=== PATIENT | male | born 1950 | race Caucasian/White ===

== ENCOUNTER 2022-01-14 13:10 | Outpatient (CLI) | payer BC, MEDICARE, SELFPAY ==
[2022-01-14 17:53] LABS: Chloride* 104 mmol/L (96-114); Sodium* 140 mmol/L (135-149)
[2022-01-14 17:55] LABS: Cholesterol* 162 mg/dL (90-199); Creatinine* 0.9 mg/dL (0.5-1.5); Estimated Glomerular Filt Rate 92 ml/min
[2022-01-14 17:56] LABS: Blood Urea Nitrogen* 17 mg/dL (7-30); Calcium* 9.2 mg/dL (8.4-10.6); Carbon Dioxide* 28 mmol/L (20-32); Glucose* 79 mg/dL (60-115); HDL Cholesterol* 46 mg/dL (>=40); LDL Cholesterol Calculated 94 mg/dL (<100); Triglycerides* 109 mg/dL (40-149)
[2022-01-14 18:27] LABS: PSA Screen* 0.45 ng/mL (0.10-4.00)
== END 2022-01-14 13:11 | disposition home or self-care (01) ==
PROVIDERS: PCP Family Medicine; Visit Provider Family Medicine
DX: I10 Essential (primary) hypertension (principal); I25.10 Atherosclerotic heart disease of native coronary artery without angina pectoris; R07.89 Other chest pain; Z12.5 Encounter for screening for malignant neoplasm of prostate
CPT/HCPCS: 80048; 80061; 84153

== ENCOUNTER 2022-01-29 09:08 | Outpatient (CLI) | payer BC, MEDICARE, SELFPAY ==
--- NOTE | 2022-01-29 09:00 | CRLHL7_ITS ---
For Patients: As a result of the Century Cures Act, medical imaging exams and procedure reports are released immediately into your electronic medical record. You may view this report before your referring provider. If you have questions, please contact your health care provider. [facility] MYOCARDIAL PERFUSION SCAN CLINICAL HISTORY: 71-year-old male. ASHD. Previous coronary stenting x 3. Chest pain. Former smoker. Hypertension. 240 pounds. TECHNIQUE: (Resting SPECT and Stress Gated SPECT with wall motion and ejection fraction) Stress: Treadmill (5 minutes 6 seconds) Maximum heart rate: 139 bpm Maximum systolic blood pressure: 184 mmHg systolic Rate pressure product: 25,576 Dose (Stress/Rest): 34.4 mCi/9.76 mCi Tc-99m Sestamibi (IV) Comparison: None FINDINGS: There is good uptake of activity by the left ventricle. No left ventricular enlargement is noted. There is soft tissue attenuation. No other significant fixed or reversible defects are identified. The gated images demonstrate a normal left ventricular ejection fraction of approximately 65 percent. No regional wall motion abnormalities are identified. IMPRESSION: 1. There is no evidence of significant myocardial ischemia or infarction. 2. Normal left ventricular ejection fraction of approximately 65 percent. This study was jointly reviewed by radiology and cardiology. DALE SHER M.D. [email or web address] Transcribed: 2:47 pm ARLEN ALMAGUER M.D. CO-READER Department of Cardiology DW/Dictated by: Dale Sher MD @ 01/29/2022 1:47:00 PM DW/Dictated by: Dale Sher MD @ 01/29/2022 1:47:00 PM (Electronically Signed)
[2022-01-29 11:06] VITALS: BP 160/84; PULSE 86; RESP 18
--- NOTE | 2022-01-29 15:50 | PM.ST ---
Stress Test Note Date Time Seen by Provider: 10:40 Date Seen: 01/29/22 Date of test: 01/29/22 Providers Referring provider: Edwar Frazier Primary care provider: Edwar Frazier Stress test physician: Kelli Dimas Stress Test Note Stress test ordered: Stress Myoview Indication for test: Chest pain, history CAD. Stress test medicine: None Results discussion: Resting EKG: Sinus rhythm, 69 beats per minute, some baseline artifact. Resting blood pressure: 144/84 Stress test: Patient exercised on the treadmill following standard Hardy protocol. He was able to exercise to 5 minutes 6 seconds. Occasional PVCs and 1 couplet of ventricular ectopy noted, patient asymptomatic. Otherwise no arrhythmia. He achieved 7 Mets with this exercise level. He had a maximum heart rate of 139 beats per minute which was 108% of a calculated target heart rate of 128. He had no recurrent chest pain during exercise. Test was terminated due to becoming short of breath, reaching a maximal exercise tolerance and obtaining his needed heart rate. He recovered nicely. Nuclear medicine images to couple this for a full formal diagnostic. Impression: Subjectively negative, objectively negative EKG portion of this stress test. Follow up suggested: He will wait report from his primary care provider Dr. Frazier. We have discussed exercise as tolerated. He does walk daily and it is not bothering him at this point. If he has recurrent chest pain he is to seek re-evaluation in the interim.
== END 2022-01-29 09:09 | disposition home or self-care (01) ==
LOC: STRESS 09:08
PROVIDERS: PCP Family Medicine; Visit Provider Family Medicine
DX: I25.10 Atherosclerotic heart disease of native coronary artery without angina pectoris (principal); R07.89 Other chest pain; I10 Essential (primary) hypertension
CPT/HCPCS: 78452; 93016; 93017; A9500

== ENCOUNTER 2023-01-21 07:49 | Outpatient (CLI) | payer BC, MEDICARE, SELFPAY | END 2023-01-21 07:50 | disposition home or self-care (01) | PROVIDERS: PCP Family Medicine; Visit Provider Family Medicine | DX: I10 Essential (primary) hypertension (principal); I25.10 Atherosclerotic heart disease of native coronary artery without angina pectoris | CPT/HCPCS: 80048; 80061 ==

== ENCOUNTER 2023-03-04 10:46 | Outpatient (CLI) | payer BC, MEDICARE, SELFPAY | END 2023-03-04 10:47 | disposition home or self-care (01) | LOC: LONREF 10:49 | PROVIDERS: PCP Family Medicine; Visit Provider Family Medicine | DX: Z01.818 Encounter for other preprocedural examination (principal) | CPT/HCPCS: 80048 ==

== ENCOUNTER 2023-03-12 10:51 | Day surgery (SDC) | payer BC, MEDICARE, SELFPAY ==
[2023-03-12] VITALS (30 sets, daily range): BP systolic 84–159; BP diastolic 56–95; PULSE 53–97; RESP 15–20; TEMP 36–37.2; O2SAT 91–99; BMI 38.3
[2023-03-12] MEDS: ACETAMINOPHEN 500 MG TABLET 1000 MG PO ×3 (11:41→23:46)
[2023-03-12] MEDS: OXYCODONE (CR) 10 MG TAB.ER.12H PO (11:41)
[2023-03-12] MEDS: fentaNYL 100 MCG/2 ML inj IVP (12:01)
[2023-03-12] MEDS: SODIUM CHLORIDE 0.9 % (FLUSH) 10 ML SYRINGE IVF (12:02)
[2023-03-12] MEDS: LACTATED RINGERS 1000 ML 1,000 ML 100 ML IV ×2 (12:03→15:00)
--- NOTE | 2023-03-12 12:56 | CRLHL7_ITS ---
For Patients: As a result of the Cures Act, medical imaging exams and procedure reports are released immediately into your electronic medical record. You may view this report before your referring provider. If you have questions, please contact your health care provider. INDICATION: Post operative knee arthroplasty TECHNIQUE: Knee radiograph 2 views right COMPARISON: None FINDINGS: Bone: No acute fractures or aggressive bone lesions are identified. Joint: The patient is status post a total knee arthroplasty with patellar resurfacing. No significant knee effusion is seen. Soft tissue: Anterior skin, subcutaneous gas and joint gas are present from recent surgery. No radiopaque foreign bodies are seen. Moderate vascular calcifications are noted. IMPRESSION: 1. There is an unremarkable postoperative appearance of the knee arthroplasty. Dictated by: Naif Caputo MD @ 03/14/2023 08:19:33 (Electronically Signed)
[2023-03-12] MEDS: MIDAZOLAM HCL 1 MG/ML inj IVP (13:52)
--- NOTE | 2023-03-12 14:11 | W.PM.NB ---
Nerve Block Nerve Block Time Seen by Provider: 14:00 Date Seen: 03/12/23 Type of block requested by surgeon for post-operative analgesia: adductor canal Side: right Time out performed: Yes Verification of patient name: Yes Verification of date of : Yes Site marking: site marked Name of person performing procedure: Sergio Lyn Continuous monitoring Was continuous monitoring of O2 sat, B/P, email campaign specialist, recorded every 15 minutes?: Yes Procedure Checklist: sterile prep, needles and gloves Ultrasound guided. Images saved: Yes Medications given in 5ml increments after negative aspiration: Ropivicaine %: 0.5 mL: 20 Needle gauge: 20 Decadron (mg): 10 Precedex (mcg): 25 Patient tolerated procedure well: Yes Additional comments: Injected in 5mL increments after negative aspiration Block Charges Block Charge (with Pro Fee): Femoral Nerve Use of Ultrasound Machine for Block: Yes- US Guidance/pain block
--- NOTE | 2023-03-12 14:12 | P.NB_ITS ---
Nerve Block Nerve Block Time Seen by Provider: 14:00 Date Seen: 03/12/23 Type of block requested by surgeon for post-operative analgesia: geniculars Side: right Time out performed: Yes Verification of patient name: Yes Verification of date of : Yes Site marking: site marked Name of person performing procedure: Sergio Randlevalerie Continuous monitoring Was continuous monitoring of O2 sat, B/P, business planner, recorded every 15 minutes?: Yes Procedure Checklist: sterile prep, needles and gloves Ultrasound guided. Images saved: Yes Medications given in 5ml increments after negative aspiration: Ropivicaine %: 0.5 mL: 10 Needle gauge: 25 Patient tolerated procedure well: Yes Additional comments: Injected in 4mL increments after negative aspirations Block Charges Block Charge (with Pro Fee): Genicular Nerve Block Use of Ultrasound Machine for Block: No
--- NOTE | 2023-03-12 14:27 | SUR.PREOP ---
TIME?OUT:?1351 PT/RN/MDA?VERIFICATION?OF?SURGICAL?SITE,?PROCEDURE,?AND?CONSENT OBTAINED?PRIOR?TO?INVASIVE?PROCEDURE. all in agreement
[2023-03-12] MEDS: TRANEXAMIC ACID 100 MG/ML INJ 1000 MG IV (14:44)
[2023-03-12] MEDS: CEFAZOLIN 2 GM in 0.9 % SODIUM CHLORIDE Mini-bag 100 ML IVPB ×2 (14:46→20:56)
--- NOTE | 2023-03-12 15:55 | P.ORPRC_ITS ---
Procedure Note Date of procedure: 03/12/23 Procedure: PREOPERATIVE DIAGNOSIS: 1. Right knee osteoarthritis, primary, severe POSTOPERATIVE DIAGNOSIS: 1. Right knee osteoarthritis, primary, severe PROCEDURE: 1. Right total knee arthroplasty SURGEON: Dae Butts MD. STERILE PROCESSING TECHNOLOGIST: LENORE Abraham - Of note, a skilled physical therapy assistant instructor was critical for this case to aid in patient positioning, tissue retraction, limb manipulation/positioning, and closure. ANESTHESIA: Spinal anesthetic IMPLANTS: DePuy J&J all cemented TKA - Attune PS femur size 7, size 7 tibia, 5 poly spacer, 41mm patella TOURNIQUET: 90 min at 300 torr EBL: 50 ml COMPLICATIONS: None evident INDICATIONS: The patient is a pleasant 72-year-old male who has experienced severe right knee pain and difficulty bearing weight. Workup included x-rays which revealed severe osteoarthrosis in the knee. Given the deformity, the dysfunction, and the pain, as well as the failure of nonoperative management, recommendation was made for surgery. FINDINGS: Full-thickness chondral loss diffusely throughout the medial compartment with degenerative medius close pathology. Patellofemoral compartment and lateral compartment also significant chondromalacia to lesser degree. Moderate effusion upon entering the joint. Loose body seen throughout the knee joint. Large osteophytes throughout all 3 compartments. DESCRIPTION OF PROCEDURE: Following a thorough discussion of risks, benefits, and alternatives consent was obtained and the right knee was marked. The patient was brought to the operating room and placed supine on the operating table. Induction of anesthesia was undertaken. 2 g IV Ancef and 1 g tranexamic acid was administered within 1 hr of incision preoperatively. Proper time-out was performed identifying proper patient, site, procedure. The operative extremity was prepped and draped in the appropriate sterile fashion using ChloraPrep after the patient was positioned supine with all bony prominences well padded. A longitudinal, anterior, midline skin incision was made starting approximately 3cm proximal to the superior pole of the patella and advanced distal to the tibial tubercle. A median parapatellar arthrotomy was created. A medial subperiosteal sleeve was created with knife, baum elevator and curved osteotome. The retropatellar fatpad was resected and the synovium in the suprapatellar pouch excised to visualize the anterior femoral cortex. Femoral preparation was performed via an intramedullary guide. Step drill allowed access into the femoral canal. The distal cutting guide was placed with 5? of valgus and 12 mm cut on the distal femur due to flexion contracture of 10?. Femur was sized using a anterior referencing guide in 3? of external rotation. This found have a best fit with the sizing noted above. The 4 in 1 cutting block was then placed, and the distal femur shaped accordingly. The box cut was then created and the trial implant inserted to confirm appropriate fit. We turned our attention to the proximal tibia. Extramedullary guide was utilized for cutting with the goal of being 90 degree cut from the mechanical axis of the tibia in the varus/valgus plane utilizing tibial crest as the primary alignment. Initially a 1 mm resection was performed from the medial tibial plateau. Ultimately, balancing was achieved in both flexion and extension in both varus and valgus. The knee was able to achieve full extension as well comfortably. The patella was initially measured and found have a thickness of 27 mm. It was resected back to approximately 16 mm. It was sized to be a best fit with as noted above. This was drilled, trial placed. All trials were placed and found to have an excellent stability and balance. At this stage, trial implants were removed, the knee was thoroughly irrigated with normal saline, and the cement was mixed. After irrigation, the knee was thoroughly dried, and cement placed, with the real tibial and femoral implants placed along with the patella. Trial poly spacer was placed and confirmed to have excellent range of motion and full extension, and the real poly spacer opened and inserted. All extra cement was removed, and a 3 min Betadine soak performed. Finally, a final irrigation round with normal saline was performed. Closure performed with 0 Vicryl and #0 Stratafix for the quad tendon/retinaculum. 2-0 Vicryl for the subcutaneous and 4-0 Stratafix for subcuticular closure. Dressings were applied and the patient was awoken from anesthesia after the tourniquet deflated and transferred the PACU in stable condition. A skilled physical therapy assistant instructor was critical for this case to aid in patient positioning, tissue retraction, bone exposure, limb manipulation/positioning, patient safety, and closure. PLAN: 1. Weight bear as tolerated operative extremity. 2. 23 hr perioperative antibiotics. 3. Ice. 4. PT/OT consults for ambulation assistance/mobility education. 5. Social work consult for discharge planning. 6. DVT prophylaxis with at SCDs, Gal Hose, and aspirin twice daily.
--- NOTE | 2023-03-12 15:55 | W.PM.H&PU ---
History & Physical Update History & Physical Update H&P Reviewed and patient assessed: No changes noted
--- NOTE | 2023-03-12 16:27 | P.ANES_ITS ---
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
--- NOTE | 2023-03-12 17:40 | PM.IMCN1 ---
Date of Consult Patient: [facility] Patient Consult date: 03/12/23 Requesting Physician: Orthopedics Primary Care Provider: Edwar Frazier MD Consult Narrative Reason for consult: Medical management of comorbidities Narrative: Matt Alexis is a 72 year old male who presented to the hospital today for an elective R TKA. There were no surgical or anesthetic complications noted during procedure. Patient's H&P reviewed, PCP is Dr. Frazier. Past medical history significant for: ASCVD, ttp (presumably heparin induced) History of blood clots: No Postoperative plan: Home with in [place]. Former smoker, no ETOH use. Review of Systems Status of ROS: Reports: 10 or more systems reviewed and unremarkable except as noted in History and below PFSH [facility] Medical History (Updated 03/12/23 @ 17:48 by Leah Torre MD) Thrombotic thrombocytopenic purpura ?M31.19 - Other thrombotic microangiopathy (ICD-10) Supraventricular tachycardia (03/16/10) ?I47.1 - Supraventricular tachycardia (ICD-10) Low back pain (03/16/10) ?M54.50 - Low back pain, unspecified (ICD-10) Hypertension (02/10/13) ?I10 - Essential (primary) hypertension (ICD-10) Arteriosclerotic cardiovascular disease ?I25.10 - Atherosclerotic heart disease of [place] coronary artery without angina pectoris (ICD-10) Tobacco use (03/16/10) ?Z72.0 - Tobacco use (ICD-10) Non-ST elevation myocardial infarction (NSTEMI) ?I21.4 - Non-ST elevation (NSTEMI) myocardial infarction (ICD-10) Surgical History (Updated 03/12/23 @ 17:47 by Leah Torre MD) Status post right knee replacement ?Z96.651 - Presence of right artificial knee joint (ICD-10) History of hydrocelectomy ?Z98.890 - Other specified postprocedural states (ICD-10) Status post coronary artery stent placement ?Z95.5 - Presence of coronary angioplasty implant and graft (ICD-10) Family History Other Prostate cancer Social History What is your current living situation?: I presently have a place to live Problems where you live: no known problems In the past 12 months, utilities in danger of being shut off: no In past 12 months, lack of transportation kept you from medical appts, meetings, work, or getting things needed for daily living: no In the past 12 mos, have been you worried that your food would run out before you had money to buy more?: never true In the past 12 mos, the food you bought just didn't last and you didn't have money to buy more?: never true Are you following a diet prescribed by a doctor: No Are you following a special diet: No Smoking Status: Former smoker What tobacco products do you use: cigarettes Smoking quit date/years: <= 15 years ago Do you use any of these nicotine containing products: None Second hand tobacco smoke exposure: No How often do you have a drink containing alcohol: never AUDIT-C Alcohol total score: 0 Non-prescribed substance use: denies use Caffeine: Yes How often does anyone, including family, friends and others, physically hurt you: never How often does anyone, including family, friends and others, insult or talk down to you: never How often does anyone, including family, friends and others, threaten you with harm: never How often does anyone, including family, friends and others, scream or curse at you: never Little interest or pleasure in doing things: not at all Feeling down, depressed, or hopeless: not at all Meds Home Medications and Allergies Home Medications Medication Instructions Recorded Confirmed Type aspirin 81 mg tablet,delayed 81 mg PO DAILY 01/14/22 03/10/23 History release atorvastatin 40 mg tablet 40 mg PO HS 03/12/23 03/12/23 History Allergies Allergy/AdvReac Type Severity Reaction Status Date / Time heparin Allergy Severe Platelet Verified 03/04/23 10:11 count inhibitor Exam Narrative: Exam Narrative: GEN: Alert and oriented, sitting up in bed and nontoxic in appearance HEENT: EOMIs bilaterally, no scleral icterus CV: RRR, No concerning murmurs R: LCTA bilaterally without concerning wheezing, air movement is adequate Ext: wwp, no concerning edema Skin: No concerning skin lesions or rashes on exposed skin Neuro: Nonfocal Psych: Appropriate Const: Vital Signs, click to edit/add: Vital Signs - 24 hr 03/12/23 11:48 03/12/23 13:47 03/12/23 13:52 Temperature 99.0 F Pulse Rate 89 66 64 Respiratory Rate 16 16 16 Blood Pressure 142/95 H 150/89 H 159/95 H Pulse Oximetry 98 99 94 Oxygen Delivery Me thod Room Air Nasal Cannula Nasal Cannula Oxygen Flow Rate 2 2 03/12/23 13:57 03/12/23 16:21 03/12/23 16:22 Temperature 98.0 F Pulse Rate 62 58 L 55 L Respiratory Rate 16 16 Blood Pressure 159/95 H 84/59 L Pulse Oximetry 94 93 92 Oxygen Delivery Me thod Room Air Room Air Room Air Oxygen Flow Rate 03/12/23 16:23 03/12/23 16:25 03/12/23 16:27 Temperature Pulse Rate 61 57 L 58 L Respiratory Rate 15 Blood Pressure 84/61 L 95/68 100/66 Pulse Oximetry 91 93 93 Oxygen Delivery Me thod Room Air Room Air Room Air Oxygen Flow Rate 03/12/23 16:30 03/12/23 16:31 03/12/23 16:32 Temperature 96.8 F L Pulse Rate 57 L 53 L 54 L Respiratory Rate 16 Blood Pressure 116/76 Pulse Oximetry 94 94 94 Oxygen Delivery Me thod Room Air Room Air Oxygen Flow Rate 03/12/23 16:36 03/12/23 16:37 03/12/23 16:41 Temperature Pulse Rate 58 L 56 L 55 L Respiratory Rate 16 16 Blood Pressure 118/74 122/72 Pulse Oximetry 94 94 93 Oxygen Delivery Me thod Oxygen Flow Rate 03/12/23 16:45 03/12/23 16:46 Temperature Pulse Rate 56 L 56 L Respiratory Rate 16 Blood Pressure 112/82 Pulse Oximetry 95 94 Oxygen Delivery Me thod Oxygen Flow Rate Assessment and Plan Assessment and plan (1) Status post right knee replacement: Problem comment: - 03/12/23Beckie Status: Acute (2) Thrombotic thrombocytopenic purpura: Problem comment: - 2020, presumably heparin induced. Tolerates ASA well Status: Acute (3) Arteriosclerotic cardiovascular disease: Problem comment: - s/p 3 stents in 2018, w NSTEMI 2018 Status: Acute Plan - pain management and prophylaxis per orthopedic surgery team - continue home medications for comorbidities - anticipate routine postoperative course
--- NOTE | 2023-03-12 19:37 | PC.NURSE ---
shift note: pt to rm 255 via bed. post op vss initiated and stable. pt has minimal movement of rt l/e. PP+ bilat. cap refill intact. drsg to rt knee c/d/i with cryo cuff in place. pt denies pain. pt tolerating regular diet. IV patent. No void at this time
[2023-03-12] MEDS: OXYCODONE 5 MG TABLET PO ×2 (20:55→23:45)
[2023-03-12] MEDS: SENNOSIDES 1 TAB TABLET 2 TAB PO (20:55)
[2023-03-12] MEDS: ASPIRIN 81 MG TABLET EC PO (20:55)
[2023-03-12] MEDS: LACTATED RINGERS 1000 ML 1,000 ML 75 ML IV (20:57)
[2023-03-13] MEDS: OXYCODONE 5 MG TABLET PO ×3 (02:29→08:25)
[2023-03-13 02:36] VITALS: BP 137/95; PULSE 99; RESP 16; TEMP 36.7; O2SAT 97
--- NOTE | 2023-03-13 03:19 | PC.NURSE ---
Pt pleasant and cooperative. Pt up to BR and voiding. Pain controlled. No N/V. Afebrile. Wound CDI.
[2023-03-13] MEDS: CEFAZOLIN 2 GM in 0.9 % SODIUM CHLORIDE Mini-bag 100 ML IVPB (04:32)
[2023-03-13 05:21] VITALS: TEMP 36.7
[2023-03-13] MEDS: ACETAMINOPHEN 500 MG TABLET 1000 MG PO (05:21)
[2023-03-13 06:22] LABS: Hematocrit 39.7 % (37.0-53.0); Hemoglobin* 13.3 gm/dL (13.5-17.5); Immature Granulocytes Pct Auto 0.3 %; Lymphocytes Percent Auto 5.1 % (20-44); Mean Corpuscular HGB Conc 34 gm/dL (32-36); Mean Corpuscular Hemoglobin 30 pg (26-34); Mean Corpuscular Volume 90 fL (80-100); Monocytes Percent Auto 3.7 % (0.0-11.0); Neutrophils Percent Auto 90.9 % (42.0-72.0); Platelet Count* 288 K/uL (140-440); RDW Coefficient of Variation % 12.6 % (11.5-15.5); Red Blood Count 4.41 m/uL (4.30-5.90); White Blood Count* 22.32 K/uL (4.50-11.00)
[2023-03-13 06:24] LABS: Slide Review Reflex No
[2023-03-13 06:33] LABS: Potassium* 3.8 mmol/L (3.6-5.1); Sodium* 139 mmol/L (135-149)
[2023-03-13 06:36] LABS: Blood Urea Nitrogen* 20 mg/dL (7-30); Creatinine* 0.8 mg/dL (0.5-1.5); Est. Creatinine Clearance* 59.79; Estimated Glomerular Filt Rate 95 ml/min
[2023-03-13 07:00] VITALS: O2SAT 98
[2023-03-13] MEDS: ASPIRIN 81 MG TABLET EC PO (08:21)
[2023-03-13] MEDS: SENNOSIDES 1 TAB TABLET 2 TAB PO (08:21)
--- NOTE | 2023-03-13 08:45 | PM.ORPN ---
Subjective Subjective Date Seen: 03/13/23 Principal diagnosis: Status postop day 1 right total knee arthroplasty Interval history: Patient reports doing well. No acute events over night. Pain rated 2/10, managed with scheduled and PRN medications, ice. DVT prophylaxis: 81 mg aspirin by mouth twice daily, bilateral knee high Gal stockings, SCDs, walking. Denies fevers, chills, aches, N/V, CP, SOB/BAPTISTE, or lightheadedness. Performing his physical therapy exercises this morning at 0300 hours, eager to increase strength and mobility. Ortho Exam Narrative Exam Narrative: -Patient appears comfortable; no apparent acute distress -Alert and oriented times 3 -Operative knee mildly swollen; soft tissues supple; no ecchymosis; no erythematous streaking Warmth appropriate -Surgical dressing clean, dry, intact; no drainage -Bilateral calfs soft; no significant swelling, edema, tenderness, erythema, discoloration, warmth, or palpable cords -2+ DP/PT pulses, intact dermatomes and myotomes distally (5/5 strength) Const Vital Signs, click to edit/add: Vital Signs - 24 hr 03/12/23 11:48 03/12/23 13:47 03/12/23 13:52 Temperature 99.0 F Pulse Rate 89 66 64 Pulse Rate [Right Pulse Oximeter] Respiratory Rate 16 16 16 Blood Pressure 142/95 H 150/89 H 159/95 H Blood Pressure [Left Arm] Pulse Oximetry 98 99 94 Oxygen Delivery Method Room Air Nasal Cannula Nasal Cannula Oxygen Flow Rate 2 2 03/12/23 13:57 03/12/23 16:21 03/12/23 16:22 Temperature 98.0 F Pulse Rate 62 58 L 55 L Pulse Rate [Right Pulse Oximeter] Respiratory Rate 16 16 Blood Pressure 159/95 H 84/59 L Blood Pressure [Left Arm] Pulse Oximetry 94 93 92 Oxygen Delivery Method Room Air Room Air Room Air Oxygen Flow Rate 03/12/23 16:23 03/12/23 16:25 03/12/23 16:27 Temperature Pulse Rate 61 57 L 58 L Pulse Rate [Right Pulse Oximeter] Respiratory Rate 15 Blood Pressure 84/61 L 95/68 100/66 Blood Pressure [Left Arm] Pulse Oximetry 91 93 93 Oxygen Delivery Method Room Air Room Air Room Air Oxygen Flow Rate 03/12/23 16:30 03/12/23 16:31 03/12/23 16:32 Temperature 96.8 F L Pulse Rate 57 L 53 L 54 L Pulse Rate [Right Pulse Oximeter] Respiratory Rate 16 Blood Pressure 116/76 Blood Pressure [Left Arm] Pulse Oximetry 94 94 94 Oxygen Delivery Method Room Air Room Air Oxygen Flow Rate 03/12/23 16:36 03/12/23 16:37 03/12/23 16:41 Temperature Pulse Rate 58 L 56 L 55 L Pulse Rate [Right Pulse Oximeter] Respiratory Rate 16 16 Blood Pressure 118/74 122/72 Blood Pressure [Left Arm] Pulse Oximetry 94 94 93 Oxygen Delivery Method Oxygen Flow Rate 03/12/23 16:45 03/12/23 16:46 03/12/23 16:51 Temperature 97 F L Pulse Rate 56 L 56 L Pulse Rate [Right Pulse Oximeter] 53 L Respiratory Rate 16 18 Blood Pressure 112/82 Blood Pressure [Left Arm] 129/78 Pulse Oximetry 95 94 94 Oxygen Delivery Method Room Air Oxygen Flow Rate 03/12/23 16:51 03/12/23 17:00 03/12/23 17:02 Temperature 97 F L 97 F L 97 F L Pulse Rate 53 L Pulse Rate [Right Pulse Oximeter] 57 L 54 L Respiratory Rate 18 18 18 Blood Pressure Blood Pressure [Left Arm] 129/78 114/56 L 114/56 L Pulse Oximetry 95 95 Oxygen Delivery Method Room Air Room Air Room Air Oxygen Flow Rate 03/12/23 17:15 03/12/23 17:30 03/12/23 17:45 Temperature 97 F L 97.3 F L 97.5 F L Pulse Rate Pulse Rate [Right Pulse Oximeter] 54 L 57 L 62 Respiratory Rate 18 18 18 Blood Pressure Blood Pressure [Left Arm] 132/82 136/71 124/68 Pulse Oximetry 95 95 95 Oxygen Delivery Method Room Air Room Air Room Air Oxygen Flow Rate 2 03/12/23 18:15 03/12/23 18:45 03/12/23 19:45 Temperature 97.4 F L 97.4 F L 97.6 F Pulse Rate Pulse Rate [Right Pulse Oximeter] 58 L 64 70 Respiratory Rate 18 18 16 Blood Pressure Blood Pressure [Left Arm] 130/74 122/78 124/68 Pulse Oximetry 96 96 96 Oxygen Delivery Method Room Air Room Air Room Air Oxygen Flow Rate 03/12/23 20:45 03/12/23 22:45 10/18/23 23:35 Temperature 97.6 F 97.6 F Pulse Rate Pulse Rate [Right Pulse Oximeter] 89 97 Respiratory Rate 18 20 Blood Pressure Blood Pressure [Left Arm] 133/87 153/89 H Pulse Oximetry 93 93 93 Oxygen Delivery Method Room Air Room Air Oxygen Flow Rate 03/12/23 23:46 03/13/23 02:36 03/13/23 05:21 Temperature 97.6 F 98.1 F 98.1 F Pulse Rate Pulse Rate [Right Pulse Oximeter] 99 Respiratory Rate 16 Blood Pressure Blood Pressure [Left Arm] 137/95 H Pulse Oximetry 97 Oxygen Delivery Method Room Air Oxygen Flow Rate Assessment and Plan Assessment and plan (1) Status post right knee replacement: Problem details: - 03/12/23, Beckie Status: Acute (2) Thrombotic thrombocytopenic purpura: Problem details: - 2020, presumably heparin induced. Tolerates ASA well Status: Acute (3) Arteriosclerotic cardiovascular disease: Problem details: - s/p 3 stents in 2017, w NSTEMI 2017 Status: Acute Plan - Complete 23 hour perioperative antibiotics. - PT/OT consult for education and assistance. - Social work consult for discharge planning - Prescribed analgesics as needed - DVT prophylaxis: 81 mg aspirin by mouth twice daily, bilateral knee high Gal Hose stockings and SCDs - Anticipation is for discharge to home with spouse 03/13/2023 if the patient remains medically stable, pain is controlled, and they are safe with mobilization. * they have FMLA paperwork that med surg floor will fax to our ortho clinic; they asked that this then be faxed to her employer so she may have off a few weeks in order to help patient get to PT.
[2023-03-13 09:13] VITALS: BP 148/84; PULSE 68; RESP 18; TEMP 36.9; O2SAT 97
--- NOTE | 2023-03-13 10:45 | PC.SOCIAL ---
Discharge Planning: Met with patient and in patient's room. Patient will be returning home today after discharge. will be taking two weeks off from work to help take care of patient and to drive him to out patient physical therapy. Home is set up for ease for patient. No questions or concerns. Social work to follow up as needed.
--- NOTE | 2023-03-13 11:06 | PC.NURSE ---
shift note: vss stable.pt rating rt knee pain 07/05. pt ambulates with SBA/walker with steady gait. LS clr. IS performed indept. drsg to rt knee c/d/i. trace swelling at rt knee. Pp+ bilat with intact cap refill. dc'd Lt hand IV intact. Reviewed dc instructions and copies sent with pt. Belongings reviewed and sent with pt at dc.
--- NOTE | 2023-03-21 16:40 | PC.NURSE ---
I entered this patient's chart to obtain the patient's phone number per telephone request of orthopedic provider, Gold Venegas.
== END 2023-03-13 11:10 | disposition home or self-care (01) ==
LOC: OR 10:51 → MEDSURG 10:52
PROVIDERS: PCP Family Medicine; Visit Provider Orthopaedic Surgery Sports Medicine
PROC: (CPT 27447; principal; 2023-03-12 13:15)
DX: M17.11 Unilateral primary osteoarthritis, right knee (principal); G89.18 Other acute postprocedural pain; I25.10 Atherosclerotic heart disease of native coronary artery without angina pectoris; I10 Essential (primary) hypertension; M31.19 Other thrombotic microangiopathy
CPT/HCPCS: 27447; 01402; 36415; 64447; 64454; 73560; 76942; 82565; 84132; 84295; 84520; 85025; 97116; 97161; 97165; 97530; 99100; A9270; C1776; J0690; J1100; J2250; J2371; J2405; J2704; J2795; J3010; J7120

== ENCOUNTER 2023-03-21 09:52 | Outpatient (CLI) | payer BC, MEDICARE, SELFPAY ==
--- NOTE | 2023-03-21 10:15 | CRLHL7_ITS ---
For Patients: As a result of the Century Cures Act, medical imaging exams and procedure reports are released immediately into your electronic medical record. You may view this report before your referring provider. If you have questions, please contact your health care provider. INDICATION: Total knee arthroplasty, pain and swelling COMPARISON: None. TECHNIQUE: Hansen-scale, color, and duplex Doppler imaging of the examined veins. Compression and augmentation attempted where anatomically and clinically feasible. FINDINGS: Laterality: Right Examined veins: Common femoral, femoral, popliteal, posterior tibial Greater saphenous The examined veins are patent with normal color Doppler flow and a normal venous waveform on duplex Doppler. Where possible, there is normal compression and normal augmentation of flow. The left common femoral vein was sampled for comparison and is normal. No waveform abnormalities to suggest central occlusion. IMPRESSION: No deep vein thrombosis in the right leg. Dictated by Anu Dietrich MD @ 03/21/2023 10:37:49 AM (Electronically Signed)
== END 2023-03-21 09:53 | disposition home or self-care (01) ==
PROVIDERS: PCP Family Medicine; Visit Provider Physician Assistant Surgical
DX: M79.89 Other specified soft tissue disorders (principal); Z96.651 Presence of right artificial knee joint
CPT/HCPCS: 93971

== ENCOUNTER 2023-03-26 08:00 | Outpatient (RCR) | payer BC, MEDICARE, SELFPAY | END 2023-06-02 12:36 | disposition home or self-care (01) | PROVIDERS: PCP Family Medicine; Visit Provider Orthopaedic Surgery Sports Medicine | DX: M17.11 Unilateral primary osteoarthritis, right knee (principal); Z96.651 Presence of right artificial knee joint; M25.661 Stiffness of right knee, not elsewhere classified; M25.561 Pain in right knee; Z47.1 Aftercare following joint replacement surgery; R26.2 Difficulty in walking, not elsewhere classified; M62.81 Muscle weakness (generalized); Z51.89 Encounter for other specified aftercare | CPT/HCPCS: 97110; 97140; 97161; 97164 ==

== ENCOUNTER 2023-10-31 10:08 | Outpatient (CLI) | payer BC, MEDICARE, SELFPAY | END 2023-10-31 10:09 | disposition home or self-care (01) | LOC: LKVREF 10:13 | PROVIDERS: PCP Family Medicine; Visit Provider Family Medicine | DX: Z12.5 Encounter for screening for malignant neoplasm of prostate (principal); Z80.42 Family history of malignant neoplasm of prostate | CPT/HCPCS: G0103 ==

== ENCOUNTER 2024-01-21 08:21 | Outpatient (CLI) | payer BC, MEDICARE, SELFPAY | END 2024-01-21 08:22 | disposition home or self-care (01) | PROVIDERS: PCP Family Medicine; Visit Provider Family Medicine | DX: Z00.00 Encounter for general adult medical examination without abnormal findings (principal); I10 Essential (primary) hypertension; I25.10 Atherosclerotic heart disease of native coronary artery without angina pectoris | CPT/HCPCS: 80048; 80061 ==

== ENCOUNTER 2025-05-09 09:49 | Outpatient (CLI) | payer MEDICARE, BC, SELFPAY | END 2025-05-09 09:50 | disposition home or self-care (01) | PROVIDERS: PCP Family Medicine; Visit Provider Family Medicine | DX: I10 Essential (primary) hypertension; I25.10 Atherosclerotic heart disease of native coronary artery without angina pectoris; Z12.5 Encounter for screening for malignant neoplasm of prostate; Z80.42 Family history of malignant neoplasm of prostate; G56.03 Carpal tunnel syndrome, bilateral upper limbs | CPT/HCPCS: 80048; 80061; 84443; G0103 ==